=== PATIENT | male | born 1970 | race Caucasian/White ===

== ENCOUNTER 2021-07-17 16:32 | Emergency (ER) | payer OTHER ==
[~2021-07-17] VITALS: Ht 180.3 cm; Wt 92.5 kg
--- NOTE | 2021-07-17 16:55 | NUR ---
50 rears male lauceration on upper rt side on eye with open skin skin and bleeding
[2021-07-17] MEDS ORDERED: LIDOCAINE 1%-EPI 1:100,000 20 ML VIAL TP ONE (17:00)
[2021-07-17] MEDS ORDERED: LIDOCAINE 1%-EPI 1:100,000 20 ML VIAL ONE (17:11)
--- NOTE | 2021-07-17 17:17 | NUR ---
sandra to monty seen by provider
[2021-07-17] MEDS ORDERED: LIDOCAINE 2%-EPI 1:100,000 30 ML VIAL ONE (17:20)
--- NOTE | 2021-07-17 17:30 | NUR ---
JOSEFA CRAVEN AT BED PT 2 LACERATION ON FOR HEAD AND ABOVE RT EYES CLEAN AND SUTURE AND STABL DONE
--- NOTE | 2021-07-17 18:00 | NUR ---
UP TO DATE WITH TD VACCIBN
[2021-07-17] MEDS ORDERED: CEPHALEXIN MONOHYDRATE 500 MG CAPSULE PO ONE ×2 (19:00→19:12)
[2021-07-17] MEDS ORDERED: CEPH500C2 PO (19:05)
--- NOTE | 2021-07-17 19:20 | NUR ---
PT FULLY AWKE AND ALERT NO WEEKNEES D/C INSTRACTION GIVEN TO PT FULLY AND VERBLIZED UNDERSTOOD D/C HOME STABLE CONDITION
[2021-07-17 19:38] VITALS: BP 174/97
== END 2021-07-17 19:40 | disposition home or self-care (01) ==
LOC: ER 16:34
DX: S01.111A Laceration without foreign body of right eyelid and periocular area, initial encounter (principal); S01.01XA Laceration without foreign body of scalp, initial encounter; S01.81XA Laceration without foreign body of other part of head, initial encounter; L08.9 Local infection of the skin and subcutaneous tissue, unspecified; E11.9 Type 2 diabetes mellitus without complications; E78.5 Hyperlipidemia, unspecified; W26.8XXA Contact with other sharp object(s), not elsewhere classified, initial encounter; Y93.89 Activity, other specified; Y92.89 Other specified places as the place of occurrence of the external cause; Y99.8 Other external cause status
CPT/HCPCS: 12055; 99284; J3490